=== PATIENT | male | born 1960 | race Caucasian/White ===

== ENCOUNTER 2020-04-03 13:34 | Observation (INO) | payer OTHER ==
[~2020-04-03] VITALS: Ht 172.7 cm; Wt 98.3 kg
[2020-04-03] MEDS ORDERED: SODIUM CHLORIDE FLUSH 10ML SYR IVF ONE (14:30)
[2020-04-03] MEDS ORDERED: BUPR-173 PO (14:41)
[2020-04-03 15:03] LABS: BASOPHILS % (AUTO) 1 % (0-1); EOSINOPHILS % (AUTO) 1 % (1-7); LYMPHOCYTES % (AUTO) 13 % (22-44); MEAN CORPUSCULAR HGB CONC 34.5 g/dL (33.2-36.2); MEAN PLATELET VOLUME 7.9 fL (7.4-10.4); MONOCYTES % (AUTO) 10 % (2-9); NEUTROPHILS % (AUTO) 76 % (42-75); PLATELET COUNT 217 x10^3/uL (130-400); RED BLOOD COUNT 4.51 x10^6/uL (4.38-5.82); RED CELL DISTRIBUTION WIDTH 12.9 % (9.4-14.8)
[2020-04-03 15:07] LABS: INTERNATIONAL NORMALIZED RATIO 0.98 (0.93-1.1); MD NO; PROTHROMBIN TIME 10.4 Seconds (9.6-11.5)
[2020-04-03 15:11] LABS: CHLORIDE 107 mmol/L (98-107)
[2020-04-03 15:23] LABS: ALANINE AMINOTRANSFERASE 75 U/L (12-78); ALBUMIN 3.3 g/dL (3.4-5.0); ALKALINE PHOSPHATASE 73 U/L (45-117); ANION GAP 4 mmol/L (5-15); BILIRUBIN,TOTAL 0.4 mg/dL (0.2-1.0); CALCIUM 8.6 mg/dL (8.5-10.1); CREATININE 1.18 mg/dL (0.7-1.3); TOTAL PROTEIN 7.1 g/dL (6.4-8.2); TROPONIN I < 0.015 ng/mL (0.000-0.045)
[2020-04-03] MEDS ORDERED: OMNIPAQUE 350 MG/ML, 100ML BOTTLE ONE (16:00)
[2020-04-03] MEDS ORDERED: ENOXAPARIN 40 MG/0.4 ML SQ SCH (17:00)
[2020-04-03] MEDS ORDERED: ONDANSETRON ODT 4 MG PO PRN (17:00)
[2020-04-03] MEDS ORDERED: ONDANSETRON 2MG/ML, 2ML IVPush PRN (17:00)
[2020-04-03] MEDS ORDERED: morphine SULFATE 10 MG/ML, 1ML IVPush PRN (17:00)
[2020-04-03] MEDS ORDERED: ENOXAPARIN 40 MG/0.4 ML ONE (17:21)
[2020-04-03 18:05] VITALS: BP 134/79
[2020-04-03 18:17] VITALS: BP 134/79
[2020-04-03] MEDS: THIAMINE 100MG TABLET PO SCH (20:20)
[2020-04-03 21:53] LABS: TROPONIN I < 0.015 ng/mL (0.000-0.045)
[2020-04-04 01:30] VITALS: BP 143/89
[2020-04-04 03:43] LABS: TROPONIN I < 0.015 ng/mL (0.000-0.045)
[2020-04-04 07:50] VITALS: BP 138/88
[2020-04-04] MEDS: THIAMINE 100MG TABLET PO SCH (10:11)
[2020-04-04 13:37] VITALS: BP 121/76
== END 2020-04-04 17:40 | disposition home or self-care (01) ==
LOC: ED 14:37 → EDIP 15:41 → INTOOBSV 15:41 → 5SO 17:55
PROVIDERS: ADMIT Family Medicine; ATTEND Family Medicine
DX: R07.89 Other chest pain (principal); R00.0 Tachycardia, unspecified; D75.89 Other specified diseases of blood and blood-forming organs; R03.0 Elevated blood-pressure reading, without diagnosis of hypertension; F32.9 Major depressive disorder, single episode, unspecified; Z72.89 Other problems related to lifestyle; Z79.899 Other long term (current) drug therapy
CPT/HCPCS: 36415; 71045; 71275; 80053; 83735; 83880; 84443; 84484; 85025; 85379; 85610; 93005; 93017; 93306; 96372; 99285; G0378; J1650; Q9967